=== PATIENT | female | born 1990 | race Caucasian/White ===

== ENCOUNTER 2023-02-19 21:08 | Observation (INO) | payer OTHER ==
[2023-02-19] MEDS ORDERED: LACTATED RINGERS 1,000 ML IV SCH ×2 (21:30→22:00)
[2023-02-19] MEDS ORDERED: ONDANSETRON 4 MG/2 ML VIAL IVP STA (21:46)
[2023-02-19] MEDS ORDERED: HYDROmorphone 1 MG/ML 1 ML SYRINGE IVP STA (21:52)
[2023-02-19] MEDS ORDERED: HYDROmorphone PCA 10 MG/50 ML BAG IV PRN (22:00)
[2023-02-19 22:10] LABS: African American GFR (CKD) >90 (>60 ml/min/1.73 sqM); Anion Gap 10 mmol/L; Blood Urea Nitrogen 8 mg/dL (7-17); Calcium 8.7 mg/dL (8.4-10.2); Carbon Dioxide 19 mmol/L (22-30); Chloride 107 mmol/L (98-107); Glucose 87 mg/dL (74-99); Non-African American GFR(CKD) >90 (>60 ml/min/1.73 sqM); Potassium 3.9 mmol/L (3.5-5.1); Sodium 136 mmol/L (137-145)
[2023-02-19] MEDS: LACTATED RINGERS 1,000 ML IV SCH (22:27)
[2023-02-19] MEDS ORDERED: ACETAMINOPHEN TAB 325 MG TAB PO PRN (22:59)
[2023-02-20 00:39] VITALS: BP 127/74; PULSE 97; RESP 16; TEMP 97.4
[2023-02-20 01:19] LABS: Basophils % (A) 0 %; Eosinophils # (A) 0.1 k/uL (0-0.7); Eosinophils % (A) 1 %; HCT 36.7 % (34.0-46.0); HGB 11.9 gm/dL (11.4-16.0); Lymphocytes # (A) 1.8 k/uL (1.0-4.8); Lymphocytes % (A) 14 %; MCH 30.4 pg (25.0-35.0); MCHC 32.6 g/dL (31.0-37.0); MCV 93.5 fL (80.0-100.0); Mean Platelet Volume 8.9; Monocytes # (A) 0.6 k/uL (0-1.0); Monocytes % (A) 5 %; Neutrophils # (A) 10.3 k/uL (1.3-7.7); Neutrophils % (A) 80 %; Platelet Count 299 k/uL (150-450); RBC 3.92 m/uL (3.80-5.40); RDW 13.7 % (11.5-15.5)
[2023-02-20] MEDS: LACTATED RINGERS 1,000 ML IV SCH ×2 (04:36→11:29)
[2023-02-20] MEDS ORDERED: ONDANSETRON 4 MG/2 ML VIAL IVP PRN (08:16)
--- NOTE | 2023-02-20 08:50 | P.HPOB ---
History of Present Illness H&P Date: 02/20/23 Chief Complaint: 29+ weeks, nephrolithiasis the patient is a 32-year-old 4 para 2011 admitted at 29+ weeks by good dating parameters. She has a known history of nephrolithiasis and has reportedly been attempting to pass a stone for the last 2 days. She has had several trips to [facility] for evaluation to and pain control. She began to have significant nausea and vomiting and reported to our triage for more aggressive treatment. heart rate tracing is category 1. She reports the pain does wax and wane and is currently at approximately 2 out of 10 with the pain being located in the right groin area consistent with a stone near the ureterovesical junction. She does continue to have some nausea but is otherwise tolerating liquids for the most part. Pain is well-controlled with HANDWRITING EXPERT at this time. Obstetrical history: 4 para 2012 with 2 term vaginal deliveries and one early loss. record is not available at the time of this dictation. Gynecologic history: Unremarkable with no history of any infections to include STDs. Review of Systems review of systems is confined to history of present illness. Past Medical History Past Medical History: No Reported History Additional Past Medical History / Comment(s): Kidney stones History of Any Multi-Drug Resistant Organisms: None Reported Additional Past Surgical History / Comment(s): wisdom teeth removal Past Anesthesia/Blood Transfusion Reactions: No Reported Reaction Past Psychological History: No Psychological Hx Reported Smoking Status: Never smoker Past Alcohol Use History: None Reported Past Drug Use History: None Reported - Past Family History Father Family Medical History: No Reported History Additional Family Medical History / Comment(s): Chrons disease Medications and Allergies Home Medications Medication Instructions Recorded Confirmed Type Pnv No.95/Ferrous Fum/Folic AC 1 tab PO DAILY 07/17/17 02/19/23 History [ Multivitamin Tablet] Allergies Allergy/AdvReac Type Severity Reaction Status Date / Time morphine Allergy Rash/Hives Verified 02/19/23 21:19 Exam Vital Signs Temp Pulse Resp BP Pulse Ox 02/20/23 00:39 97.4 F L 97 16 127/74 02/19/23 21:50 98.1 F 91 16 136/88 97 Intake and Output 02/19/23 02/20/23 02/20/23 22:59 06:59 14:59 Other: # Voids 1 2 Weight 92.986 kg in general, is a well-developed, well-nourished white female in no acute distress though she does appear pale with some discomfort. Her heart has a regular rhythm and rate without murmur. Her lungs clear to auscultation bilaterally in all skaggs. Her abdomen is gravid, nondistended, has normal active bowel sounds, is soft, nontender, and without any palpable masses aside from uterine fundus. Her extremities are without any cyanosis, clubbing, or edema and are nontender to palpation bilaterally. Pelvic examination/digital cervical examination is deferred. Results Result Diagrams: 02/19/23 21:44 02/19/23 21:44 Abnormal Lab Results - Last 24 Hours (Table) 02/19/23 02/19/23 Range/Units 21:44 21:44 WBC 13.0 H (3.8-10.6) k/uL Neutrophils # 10.3 H (1.3-7.7) k/uL Sodium 136 L (137-145) mmol/L Carbon Dioxide 19 L (22-30) mmol/L Assessment and Plan (1) 29 weeks gestation of Current Visit: Yes Status: Acute Code(s): Z3A.29 - 29 WEEKS GESTATION OF SNOMED Code(s): 02412636 (2) Acute pain Current Visit: No Status: Acute Code(s): R52 - PAIN, UNSPECIFIED SNOMED Code(s): 834174699 (3) Nephrolithiasis Current Visit: No Status: Acute Code(s): N20.0 - CALCULUS OF KIDNEY SNOMED Code(s): 73655456 Plan: the patient has been admitted for active hydration intravenously and controlled pain. She does have a Dilaudid HANDWRITING EXPERT for pain at this time. She will continue to have IV fluids until the stone passes which I anticipate to be in the near future given the site of her current pain. She has a lot of regular diet as tolerated. Once the stone passes, she will be discharged her with her after to follow-up in the office in routine fashion.
--- NOTE | 2023-02-20 09:15 | US ---
EXAMINATION TYPE: US kidneys/renal and bladder DATE OF EXAM: 02/20/2023 COMPARISON: NONE CLINICAL INDICATION: Female, 32 years old with history of Kidney stone; right sided pain, patient 29 weeks EXAM MEASUREMENTS: Right Kidney: 12.7 x 5.1 x 5.5 cm Left Kidney: 13.6 x 5.5 x 4.9 cm Right Kidney: stone lower pole = 0.8cm. minimal/mild hydronephrosis Left Kidney: stone mid = 1.1cm Bladder: wnl Bilateral Jets seen: yes There is no evidence for hydronephrosis at this point in time. No nephrolithiasis is seen. No rebecca s are identified. The urinary bladder is anechoic. Bilateral ureteral jets are seen. IMPRESSION: Mild dilation of the collecting systems which can be normal physiology in a patient. Hyperec hoic foci bilaterally suggestive of prominent renal sinus fat versus nonobstructing calculi.
--- NOTE | 2023-02-20 12:08 | P.MSEPDOC ---
Presenting Problems - Arrival Data Date of Arrival on Unit: 02/19/23 Time of Arrival on Unit: 21:08 Mode of Transport: Bed - Complaint OB-Reason for Admission/Chief Complaint: Pain Comment: Patient presents to unit with kidney stone pain, patient states she was seen at [facility] today and they told her she needed to come here so the baby could be monitored. Patient has pain in the right flank, is vomiting on arrival. Medical History - Information : 4 Para: 2 Term: 2 : 0 Abortions: Spontaneous or Elective: 1 Number of Living Children: 2 - Gestational Age Gestational Age by KANDY (wks/days): 28 Weeks and 6 Days Review of Systems - Review of Systems Constitutional: No problems Breast: No problems ENT: No problems Cardiovascular: No problems Respiratory: No problems Gastrointestinal: No problems Genitourinary: No problems Musculoskeletal: No problems Neurological: No problems Skin: No problems Vital Signs - Temperature Temperature: 97.4 F Temperature Source: Temporal Artery Scan - Pulse Pulse Oximetery Pulse Rate: 97 Pulse Assessment Method: Automatic Cuff - Respirations Respiratory Rate: 16 Oxygen Delivery Method: Room Air - Blood Pressure Sitting Blood Pressure: 127/74 Blood Pressure Mean: 91 Blood Pressure Source: Automatic Cuff Medical Screen Scoring - Assessment - Baby A Baseline FHR: 135 Heart Rate - NICHD Category: Category I (Normal) NST: Reactive Physician Notification - Physician Notified Physician Notified Date: 02/19/23 Physician Notified Time: 21:50 Physician: Beverly Carter Order Received: Yes - Notification Comment Comment: Orders given to admit patient as a 23H OBV, Order dilaudid PRESIDENT + PUBLISHER, patient may have zofran 4mg iv push one time dose, LR at 150mL/hr, patient may have tylenol 650 mg po every 4 hours as needed for pain, strain urine, collect and send CBC, okay to discontinue monitors with a reactive NST, order bedside ultrasound for am, diet as tolerated. Maternal Triage Index - Non-Urgent/Priority 4 Non-Urgent Priority 4: Yes Criteria Met for Priority 4: 28 6/ presents with pain in her right flank x2 days, states she has a history of kidney stones, tenderness noted wth palpation in the right flank area, patient is vomiting and rating her pain 9/10. Orders given per Dr. Carter prior to arrival to initiate iv access, administer 1L of fluid, collect and send a BMP and to call physician with report Disposition - Disposition OB Disposition: Admit, LDRP Suite Transferred to:: Suite 8 I agree with the RN Medical Screening Exam: Yes Case reviewed; plan agreed upon as documented in EMR&OBIX.: Yes Diagnosis: CALCULUS OF KIDNEY
--- NOTE | 2023-02-22 09:25 | P.DS ---
Providers Date of admission: 02/19/23 21:47 Expected date of discharge: 02/21/23 Attending physician: Beverly Carter Primary care physician: Stated None - Discharge Diagnosis(es) (1) 29 weeks gestation of Status: Acute (2) Acute pain Status: Acute (3) Nephrolithiasis Status: Acute Hospital Course: the patient is a 32-year-old 4 para 2011 admitted at 29+ weeks by good dating parameters. She has known history of nephrolithiasis and presents with acute pain attempting to pass a stone for approximately 2-3 days. She had had several trips to the emergency room at [facility] for evaluation and pain control and ultimately presented here as it could not be controlled as an ou tpatient. She was admitted to the hospital for IV pain control and hydration. She had relatively good pain control using the CARGO AGENT and, on the morning of hospital day #2 was noted to have complete resolution of her discomfort though the stone was never seen in a basket. She was deemed stable for discharge and was discharged home to follow-up in the office in the next week or 2 as previously scheduled. Discharge instructions included calling for any concerns regarding the or increasing pain from further stones. She was to call for any significantly increased fever or signs or symptoms of infection. She understood her instructions and agrees follow up as noted above. Discharge medications included continue vitamins as well as [id number] analgesic pain medications. She was already in possession of a small prescription for Tylenol No. 3 to control her pain should it resume. Procedures: #1. IV hydration #2. IV pain control Patient Condition at Discharge: Stable Plan - Discharge Summary New Discharge Prescriptions: No Action Pnv No.95/Ferrous Fum/Folic AC [ Multivitamin Tablet] 1 tab PO DAILY Discharge Medication List Pnv No.95/Ferrous Fum/Folic AC [ Multivitamin Tablet] 1 tab PO DAILY 07/17/17 [History] Follow up Appointment(s)/Referral(s): David Tolbert MD [STAFF PHYSICIAN] - 1 Week Discharge Disposition: HOME SELF-CARE
== END 2023-02-20 14:40 | disposition home or self-care (01) ==
LOC: FBPOP 21:08 → 4FBP 21:47
PROVIDERS: ADMIT Obstetrics & Gynecology; ATTEND Obstetrics & Gynecology
DX: O99.891 Other specified diseases and conditions complicating pregnancy (principal); N20.0 Calculus of kidney; Z87.442 Personal history of urinary calculi; Z3A.29 29 weeks gestation of pregnancy; Z88.5 Allergy status to narcotic agent
CPT/HCPCS: 59025; 96376; 96361 ×2; 96365; 96374; 96375; 80048; 85025; 76770; G0378 ×3; G0463; J2405 ×2; J1170; 99214

== ENCOUNTER 2023-02-21 09:11 | Outpatient (CLI) | payer OTHER ==
[2023-02-21] MEDS: LACTATED RINGERS 1,000 ML IV SCH ×4 (09:50→12:12)
[2023-02-21] MEDS ORDERED: HYDROmorphone 0.5 MG/0.5 ML SYRINGE IVP PRN (10:49)
[2023-02-21 11:11] VITALS: BP 117/76; PULSE 89; RESP 16; TEMP 98.3
--- NOTE | 2023-03-23 11:30 | P.MSEPDOC ---
Presenting Problems - Arrival Data Date of Arrival on Unit: 02/21/23 Time of Arrival on Unit: 09:11 Mode of Transport: Ambulatory - Complaint OB-Reason for Admission/Chief Complaint: Pain Comment: kidney stones Medical History - Information : 4 Para: 2 Term: 2 : 0 Abortions: Spontaneous or Elective: 1 Number of Living Children: 2 - Gestational Age Gestational Age by KANDY (wks/days): 29 Weeks and 1 Days Review of Systems - Review of Systems Constitutional: No problems Breast: No problems ENT: No problems Cardiovascular: No problems Respiratory: No problems Gastrointestinal: No problems Genitourinary: No problems Musculoskeletal: No problems Neurological: No problems Skin: No problems Comment: right flank pain Vital Signs - Temperature Temperature: 98.3 F Temperature Source: Temporal Artery Scan - Pulse Right Brachial Pulse Rate: 89 Pulse Assessment Method: Automatic Cuff - Respirations Respiratory Rate: 16 Oxygen Delivery Method: Room Air O2 Sat by Pulse Oximetry: 95 - Blood Pressure Right Arm Blood Pressure: 117/76 Blood Pressure Mean: 89 Blood Pressure Source: Automatic Cuff Medical Screen Scoring - Assessment - Baby A Baseline FHR: 140 Heart Rate - NICHD Category: Category I (Normal) NST: Reactive Physician Notification - Physician Notified Physician Notified Date: 02/21/23 Physician Notified Time: 12:35 Physician: David Tolbert New Order Received: Yes - Notification Comment Comment: Pt request discharge with pain management at home with T3 and oral hydration. Maternal Triage Index - Urgent/Priority 2 Urgent Priority 2: Yes Provider Notified: David Tolbert Provider Notified Time: 09:28 Criteria Met for Priority 2: 29.1 weeks kidney stones, no preg complaints - Scheduled/Requesting Priority 5 Scheduled/Requesting Priority 5: No Disposition - Disposition OB Disposition: Triage, Discharge to home, Written follow up instructions reviewed Discharge Date: 02/21/23 Discharge Time: 13:13 I agree with the RN Medical Screening Exam: Yes Physician's MSE Comment: I have neither seen nor examined the patient. Case reviewed; plan agreed upon as documented in EMR&OBIX.: Yes Diagnosis: RELATED CONDITIONS, UNSPECIFIED, THIRD TRIMESTER
== END 2023-02-21 13:13 | disposition home or self-care (01) ==
LOC: FBPOP 09:11
PROVIDERS: ATTEND Obstetrics & Gynecology
DX: O26.893 Other specified pregnancy related conditions, third trimester (principal); Z3A.25 25 weeks gestation of pregnancy; Z88.5 Allergy status to narcotic agent
CPT/HCPCS: 59025; 96360; 96361; G0463; 99214

== ENCOUNTER 2023-04-22 01:20 | Inpatient (IN) | payer OTHER ==
[2023-04-22] MEDS: LACTATED RINGERS 1,000 ML IV SCH ×2 (03:00→11:43)
[2023-04-22 03:57] VITALS: RESP 16
[2023-04-22 03:57] LABS: Basophils % (A) 0 %; Eosinophils # (A) 0.2 k/uL (0-0.7); Eosinophils % (A) 2 %; HCT 33.9 % (34.0-46.0); HGB 11.1 gm/dL (11.4-16.0); Lymphocytes # (A) 2.9 k/uL (1.0-4.8); Lymphocytes % (A) 30 %; MCH 28.8 pg (25.0-35.0); MCHC 32.8 g/dL (31.0-37.0); Mean Platelet Volume 8.2; Monocytes # (A) 0.5 k/uL (0-1.0); Monocytes % (A) 5 %; Neutrophils % (A) 61 %; Platelet Count 277 k/uL (150-450); RBC 3.86 m/uL (3.80-5.40); RDW 13.7 % (11.5-15.5); WBC 9.8 k/uL (3.8-10.6)
[2023-04-22 04:04] LABS: MCV 87.8 fL (80.0-100.0)
[2023-04-22] MEDS ORDERED: TERBUTALINE 1 MG/ML VIAL SQ PRN (08:55)
[2023-04-22] MEDS ORDERED: METHYLERGONOVINE 0.2 MG/ML 1 ML AMP IM PRN (08:55)
[2023-04-22] MEDS ORDERED: CARBOPROST TROMETHAMINE 250 MCG/ML 1 ML AMP IM PRN (08:55)
[2023-04-22] MEDS ORDERED: TRANEXAMIC 1,000 MG/100ML-NACL 1,000 MG in EMPTY BAG 1 BAG IV PRN (08:55)
[2023-04-22] MEDS ORDERED: OXYTOCIN 10 UNIT/ML 1 ML VIAL IM PRN (08:55)
[2023-04-22] MEDS ORDERED: miSOPROStoL 200 MCG TAB PO PRN (08:55)
[2023-04-22] MEDS ORDERED: LIDOCAINE 0.5% (PF) 5 MG/ML (50 ML SDV) SQ PRN (08:55)
[2023-04-22] MEDS ORDERED: NALBUPHINE 10 MG/ML (10 ML MDV) IV PRN (08:57)
[2023-04-22] MEDS ORDERED: OXYTOCIN 30 UNITS/500 ML NS 30 UNIT in SALINE 1 500ML.BAG IV SCH ×2 (09:00→14:30)
[2023-04-22] MEDS ORDERED: PENICILLIN G POTASSIUM 5,000,000 UNIT in DEXTROSE 5% IN WATER 100 ML IVPB STA ×2 (09:03)
--- NOTE | 2023-04-22 11:06 | P.HPOB ---
History of Present Illness H&P Date: 04/22/23 Chief Complaint: 37-5/7 weeks, early active labor The patient is a 32-year-old 4 para 2011 admitted at 37-4/7 weeks as established by an 8 week ultrasound. She is admitted with regular uncomfortable contractions but not making cervical change in triage. As a result, she is admitted for observation. Overnight, she continued to contract regularly and was found this morning to be ita consistently every 3-5 minutes and had made cervical change from 3 cm to approximate 4 cm. The decision was made to proceed with delivery as the patient lives remotely from the hospital more than an hour away. She has a history of having delivered between 37 and 38 weeks on 2 previous occasions. Her has otherwise been entirely uncomplicated aside from several episodes of nephrolithiasis primarily during the second trimester. On labor and delivery, all signs reassuring with a category 1 heart rate tracing. She would is known to be group B strep positive based upon GBS bacteriuria at her lab visit. Obstetrical history: 4 para 2011 with 2 term vaginal deliveries without complications. EDC of 05/08/2023 was established by an 8 week ultrasound. Laboratory workup demonstrates a blood type of A+ with a negative antibody screen. Rubella status is immune. The remainder of the laboratory workup was within normal limits. Early Glucola as well as second trimester Glucola were within normal limits and group B strep status is positive. Oncologic history: Unremarkable with no history of any infections to include STDs. Review of Systems Review of systems is confined to history of present illness. Past Medical History Past Medical History: No Reported History Additional Past Medical History / Comment(s): Kidney stones History of Any Multi-Drug Resistant Organisms: None Reported Additional Past Surgical History / Comment(s): wisdom teeth removal Past Anesthesia/Blood Transfusion Reactions: No Reported Reaction Past Psychological History: No Psychological Hx Reported Smoking Status: Never smoker Past Alcohol Use History: None Reported Past Drug Use History: None Reported - Past Family History Father Family Medical History: No Reported History Additional Family Medical History / Comment(s): Chrons disease Medications and Allergies Home Medications Medication Instructions Recorded Confirmed Type Pnv No.95/Ferrous Fum/Folic AC 1 tab PO DAILY 07/17/17 04/22/23 History [ Multivitamin Tablet] Allergies Allergy/AdvReac Type Severity Reaction Status Date / Time morphine Allergy Rash/Hives Verified 02/21/23 10:47 Exam Vital Signs Temp Pulse Resp BP Pulse Ox 04/22/23 03:18 97.8 F 88 16 136/84 97 04/22/23 01:45 97.8 F 88 16 136/84 97 Intake and Output 04/21/23 04/22/23 04/22/23 22:59 06:59 14:59 Other: Weight 97.976 kg In general, this is a well-developed, well-nourished white female in no acute distress. Her heart has a regular rhythm and rate without murmur. Her lungs clear to auscultation bilaterally in all skaggs. Her abdomen is gravid, nondis tended, has normal active bowel sounds, is soft, nontender, and without any palpable masses aside from uterine fundus. Her extremities are without any cyanosis, clubbing, or edema and are nontender to palpation bilaterally. Digital cervical examinationher cervix to be approximate 4 cm dilated, 50-60% effaced, the vertex in presentation at -2 station. Given the cervical change, artificial rupture of membranes is carried out demonstrating clear fluid. Results Result Diagrams: 04/22/23 03:30 Abnormal Lab Results - Last 24 Hours (Table) 04/22/23 Range/Units 03:30 Hgb 11.1 L (11.4-16.0) gm/dL Hct 33.9 L (34.0-46.0) % Assessment and Plan (1) Active labor at term Current Visit: Yes Status: Acute Code(s): JEP7853 - SNOMED Code(s): 83458748 (2) Group B streptococcal infection in Current Visit: Yes Status: Acute Code(s): O98.819 - OTH MATERNAL INFEC/PARASTC DISEASES COMP PREG, UNSP TRI; B95.1 - STREPTOCOCCUS, GROUP B, CAUSING DISEASES CLASSD ELSWHR SNOMED Code(s): 318341553 Plan: Antibiotic prophylaxis has been started and artificial rupture of membranes carried out. She will have close maternal and surveillance and expectant management will be practiced. Should there be no significant progress in the next several hours, Pitocin augmentation will be added. The patient is a good candidate for either IV or epidural analgesia, whichever she may choose.
[2023-04-22] MEDS ORDERED: ROPIVACAINE 5 MG/ML 20 ML AMPULE ONE (12:59)
[2023-04-22] MEDS ORDERED: fentaNYL (PF) 50 MCG/ML 5 ML AMP ONE (12:59)
[2023-04-22] MEDS ORDERED: SODIUM CHLORIDE 0.9% 100 ML BAG ONE (12:59)
[2023-04-22] MEDS ORDERED: PENICILLIN G POTASSIUM 2,500,000 UNIT in DEXTROSE 5% IN WATER 100 ML IVPB SCH ×2 (13:00)
--- NOTE | 2023-04-22 13:20 | P.ANPRN ---
Procedure Note - Anesthesia - Epidural/Spinal Epidural Continuous Time Out Performed: Yes Date of Procedure: 04/22/23 Procedure Start Time: 12:59 Procedure Stop Time: 13:11 Location of Patient: OB Indication: Analgesia, Requested by Surgeon Preparation: Sterile Dressing Number of Attempts: 1 Position: Sitting Catheter Depth at Skin (cm): 9 Catheter: Indwelling Needle Guage: 20 Blood Aspirated: No Pain Paresthesia on Injection Noted: No Events: Other (see comment) (Pt sitting with sterile prep and drape. L4/5 skin anesthesia with 3 cc 2%lido. 20 G touhey JANINE at 4 cm, catheter esaily threaded to 9 cm at skin. Neg aspiration blood and csf. 3 cc 1.5% lido with epi negative. bolus performed by MECHANICAL SERVICE SPECIALIST.)
[2023-04-22] MEDS ORDERED: HYDROCORTISONE 2.5% RECTAL CREAM 30 GM TUBE RECTAL PRN (14:19)
[2023-04-22] MEDS ORDERED: SIMETHICONE 80 MG CHEWABLE PO PRN (14:19)
[2023-04-22] MEDS ORDERED: BENZOCAINE/MENTHOL SPRAY 1 GM/SPRAY AEROSOL TOPICAL PRN (14:19)
[2023-04-22] MEDS ORDERED: diphenhydrAMINE 50 MG CAP PO PRN (14:19)
[2023-04-22] MEDS ORDERED: diphenhydrAMINE 25 MG CAP PO PRN (14:19)
[2023-04-22] MEDS ORDERED: HYDROcodone/APAP 5-325MG 1 EACH TAB PO PRN (14:19)
[2023-04-22] MEDS ORDERED: LANOLIN CREAM 5 GM TUBE TOPICAL PRN (14:19)
[2023-04-22] MEDS ORDERED: HYDROcodone/APAP 7.5-325MG 1 EACH TAB PO PRN (14:19)
[2023-04-22] MEDS ORDERED: ZOLPIDEM 5 MG TAB PO PRN (14:19)
[2023-04-22] MEDS ORDERED: diphenhydrAMINE 50 MG/ML 1 ML VIAL IVP PRN ×2 (14:19)
--- NOTE | 2023-04-22 14:22 | P.PROBDLV ---
Vaginal Delivery Note - . Vaginal Delivery Note: The patient is a 32-year-old 4 para 2011 admitted at 37-5/7 weeks having made cervical change overnight in observation. She is admitted in early active labor with all signs reassuring, category 1 heart rate tracing. Her was complicated by several episodes of nephrolithiasis primarily in the second trimester which resolved since that time. On labor and delivery, she had artificial rupture of membranes carried out demonstrating clear fluid. After no significant car changer the course of approximately 2 hours, Pitocin augmentation was added. She made progress further into the active phase of labor and requested an epidural which was placed for analgesia. She then progressed fairly quickly to complete. She pushed over the course of 2 contractions to a normal spontaneous vaginal delivery of a viable 7 lbs. 2 oz. baby boy with Apgars of 8 at 1 minute and 9 at 5 minutes delivered in the left occiput anterior position. The placenta was delivered spontaneously, intact, and grossly normal with a grossly normal three-vessel cord inserted approximately 4-5 cm from the margin of the placental disc. There were no lacerations of the perineum, vagina, or cervix. Estimated blood loss was approximately 100 mL. There were no complications. All sponge, instrument, and needle counts were correct. Both mother and are resting comfortably in recovery.
[2023-04-22] MEDS: IBUPROFEN 600 MG TAB PO PRN ×2 (15:07→22:32)
[2023-04-22] MEDS: SENNOSIDES-DOCUSATE SODIUM 1 EACH TAB PO SCH (20:02)
[2023-04-22] MEDS: ACETAMINOPHEN TAB 325 MG TAB PO PRN (20:03)
[2023-04-22 23:15] VITALS: TEMP 98.4
[2023-04-23] MEDS: ACETAMINOPHEN TAB 325 MG TAB PO PRN (01:29)
[2023-04-23] MEDS: IBUPROFEN 600 MG TAB PO PRN ×2 (05:17→11:03)
[2023-04-23] MEDS: SENNOSIDES-DOCUSATE SODIUM 1 EACH TAB PO SCH (07:28)
[2023-04-23 07:47] VITALS: BP 137/90; PULSE 74
--- NOTE | 2023-04-23 08:56 | P.DS ---
Providers Date of admission: 04/22/23 08:55 Expected date of discharge: 04/23/23 Attending physician: David Tolbert Primary care physician: Stated None - Discharge Diagnosis(es) (1) Active labor at term Current Visit: Yes Status: Acute (2) Group B streptococcal infection in Current Visit: Yes Status: Acute (3) (normal spontaneous vaginal delivery) Current Visit: Yes Status: Acute Hospital Course: The patient is a 32-year-old 4 para 2011 admitted at 37-5/7 weeks by good dating parameters. She is admitted in early active labor with all signs reassuring. Her was cup. Only by several episodes of nephrolithiasis and the second trimester which resolved in the third trimester. She was known to be group B strep positive. As a result, she had antibiotic prophylaxis started and underwent artificial rupture of membranes for clear fluid. She had Pitocin augmentation added and an epidural catheter placed for analgesia. She progressed fairly quickly to complete and then pushed to a normal spontaneous vaginal delivery of a viable 7 lbs. 2 oz. baby boy with Apgars of 8 at 1 minute and 9 at 5 minute. Her course was unremarkable with vital signs remained stable and her temperature was afebrile throughout. She was deemed stable for discharge on day #1 was discharged home to follow-up in the office in 6 weeks' time routinely. Discharge instructions included calling for any significantly increased bleeding or foul-smelling lochia, significantly increased fever abdominal pain, perineal complaints, breast complaints, or anything also concerned her. She was additionally instructed to have nothing in the vagina for at least 6 weeks time to include intercourse. She understood her instructions and agrees follow up as noted above. Discharge medications included continued vitamins as she has opted to breast-feed. She was otherwise to use [id number] analgesic pain medications as needed. Maternal blood type is A+ and rubella status is immune. Procedures: #1. Artificial rupture of membranes #2. Pitocin augmentation #3. Antibiotic prophylaxis #4. Epidural analgesia #5. Normal spontaneous vaginal delivery Patient Condition at Discharge: Stable Plan - Discharge Summary New Discharge Prescriptions: No Action Pnv No.95/Ferrous Fum/Folic AC [ Multivitamin Tablet] 1 tab PO DAILY Discharge Medication List Pnv No.95/Ferrous Fum/Folic AC [ Multivitamin Tablet] 1 tab PO DAILY 07/17/17 [History] Follow up Appointment(s)/Referral(s): David Tolbert MD [STAFF PHYSICIAN] - 6 Weeks Discharge Disposition: HOME SELF-CARE
== END 2023-04-23 14:20 | disposition home or self-care (01) | DRG 560 ==
LOC: FBPOP 01:20 → 4FBP 03:00 → OBSVTOIN 08:55
PROVIDERS: ADMIT Obstetrics & Gynecology Obstetrics; ATTEND Obstetrics & Gynecology
PROC: 10907ZC Drainage of Amniotic Fluid, Therapeutic from Products of Conception, Via Natural or Artificial Opening (ICD-10-PCS; principal; 2023-04-22)
PROC: 10E0XZZ Delivery of Products of Conception, External Approach (ICD-10-PCS; principal; 2023-04-22)
DX: O99.824 Streptococcus B carrier state complicating childbirth (principal); Z3A.37 37 weeks gestation of pregnancy; Z37.0 Single live birth; Z87.442 Personal history of urinary calculi; Z88.5 Allergy status to narcotic agent
CPT/HCPCS: 59025; 85025; 86850; 86900; 86901; 99213

== ENCOUNTER 2023-05-06 15:46 | Outpatient (CLI) | payer OTHER ==
[2023-05-06 16:12] LABS: Basophils # (A) 0.1 k/uL (0-0.2); Basophils % (A) 1 %; Eosinophils # (A) 0.4 k/uL (0-0.7); Eosinophils % (A) 5 %; HCT 40.5 % (34.0-46.0); HGB 13.2 gm/dL (11.4-16.0); Lymphocytes # (A) 2.4 k/uL (1.0-4.8); Lymphocytes % (A) 30 %; MCH 29.3 pg (25.0-35.0); MCHC 32.6 g/dL (31.0-37.0); MCV 89.8 fL (80.0-100.0); Mean Platelet Volume 7.6; Monocytes # (A) 0.3 k/uL (0-1.0); Monocytes % (A) 4 %; Neutrophils # (A) 4.8 k/uL (1.3-7.7); Neutrophils % (A) 58 %; Platelet Count 301 k/uL (150-450); RBC 4.51 m/uL (3.80-5.40); RDW 13.2 % (11.5-15.5); WBC 8.1 k/uL (3.8-10.6)
[2023-05-06 16:23] LABS: Appearance,Urine Clear (Clear); Bilirubin,Urine Negative (Negative); Blood,Urine Small (Negative); Color,Urine Yellow; Glucose,Urine (UA) Negative (Negative); Ketones,Urine Negative (Negative); Leukocyte Esterase,Urine Trace (Negative); Mucus,Urine Rare /hpf; Nitrite,Urine Negative (Negative); PH, Urine 5.5 (5.0-8.0); Protein,Urine Negative (Negative); RBC,Urine 8 /hpf (0-5); Specific Gravity,Urine 1.017 (1.001-1.035); Squamous Epithelial Cell,Urine 1 /hpf (0-4); Urobilinogen,Urine <2.0 mg/dL (<2.0); WBC,Urine 3 /hpf (0-5)
[2023-05-06 16:34] LABS: Uric Acid 5.5 mg/dL (3.7-7.4)
--- NOTE | 2023-05-09 10:55 | P.MSEPDOC ---
Presenting Problems - Arrival Data Date of Arrival on Unit: 05/06/23 Time of Arrival on Unit: 15:46 Mode of Transport: Ambulatory - Complaint OB-Reason for Admission/Chief Complaint: Headache, Elevated Blood Pressure Comment: post x 2 weeks, c/o headache and increased b/p 140's /100's. Medical History - Gestational Age Gestational Age by KANDY (wks/days): 42 Weeks and 0 Days Review of Systems - Review of Systems Constitutional: No problems Breast: No problems ENT: No problems Cardiovascular: No problems Respiratory: No problems Gastrointestinal: No problems Genitourinary: No problems Musculoskeletal: No problems Neurological: No problems Skin: No problems Physician Notification - Physician Notified Physician Notified Date: 05/06/23 Physician Notified Time: 16:52 Physician: David Tolbert Order Received: Yes - Notification Comment Comment: Labs and b/p reviewed. Prescription for Procardia XL 30 mg daily sent to [facility] in [place]. Patient may be discharged home. Maternal Triage Index - Maternal Triage Index Presenting for scheduled procedure w/no complaint: No - Stat/Priority 1 Stat Priority 1: No - Urgent/Priority 2 Urgent Priority 2: No - Prompt/Priority 3 Prompt Priority 3: No - Non-Urgent/Priority 4 Non-Urgent Priority 4: No - Scheduled/Requesting Priority 5 Scheduled/Requesting Priority 5: Yes Criteria Met for Priority 5: Orders sent to L&D for pre eclamsia labs and UA protein from office, to be obtained once patient arrived. Disposition - Disposition OB Disposition: Discharge to home I agree with the RN Medical Screening Exam: Yes Physician's MSE Comment: I have neither seen nor examined the patient. Case reviewed; plan agreed upon as documented in EMR&OBIX.: Yes Diagnosis: OTHER SPECIFIED COMPLICATIONS OF LABOR AND DELIVERY
== END 2023-05-06 16:58 | disposition home or self-care (01) ==
LOC: FBPOP 15:46
PROVIDERS: ATTEND Obstetrics & Gynecology
DX: O75.89 Other specified complications of labor and delivery (principal); O09.93 Supervision of high risk pregnancy, unspecified, third trimester; Z3A.42 42 weeks gestation of pregnancy; Z88.5 Allergy status to narcotic agent
CPT/HCPCS: 36415; 81001; 83615; 84450; 84460; 84550; 85025